=== PATIENT | female | born 1975 | race Caucasian/White ===

== ENCOUNTER 2019-07-26 23:31 | Emergency (ER) | payer MEDICAID, OTHER ==
[~2019-07-26] VITALS: Ht 167.6 cm; Wt 77.1 kg
[2019-07-26 23:50] VITALS: BP 137/88
[2019-07-27] MEDS ORDERED: HYDROcodone-ACET 5/325MG TAB PO ONE (03:00)
== END 2019-07-27 04:35 | disposition home or self-care (01) ==
LOC: EDBD 23:31 → ER 23:31
DX: S02.91XB Unspecified fracture of skull, initial encounter for open fracture (principal); S02.92XB Unspecified fracture of facial bones, initial encounter for open fracture; S06.0X0A Concussion without loss of consciousness, initial encounter; S93.401A Sprain of unspecified ligament of right ankle, initial encounter; S20.212A Contusion of left front wall of thorax, initial encounter; S20.211A Contusion of right front wall of thorax, initial encounter; M19.90 Unspecified osteoarthritis, unspecified site; M25.572 Pain in left ankle and joints of left foot; G89.29 Other chronic pain; Y04.0XXA Assault by unarmed brawl or fight, initial encounter; Y93.89 Activity, other specified; Y92.099 Unspecified place in other non-institutional residence as the place of occurrence of the external cause; Y99.8 Other external cause status
CPT/HCPCS: 70450; 70486; 71046; 72125; 73610